=== PATIENT | female | born 1960 | race Caucasian/White ===

== ENCOUNTER 2019-05-18 16:54 | Emergency (ER) | payer OTHER, SELFPAY ==
[2019-05-18 17:03] VITALS: BP 114/75; PULSE 79; RESP 20; TEMP 36.7; O2SAT 97
--- NOTE | 2019-05-18 17:13 | ED_ITS ---
HPI - Extremity Problem General Chief complaint: Extremity Problem,Nontraumatic Stated complaint: left leg is swelling Time Seen by Provider: 05/18/19 17:07 Source: patient Mode of arrival: ambulatory Limitations: no limitations History of Present Illness HPI Narrative: 58-year-old female here for evaluation 1-2 days of left lower leg swelling and pressure when she flexes her knee. Denies any chest pain or shortn ess of breath. Denies any trauma. She did take some ibuprofen prior to arrival in by the time I evaluated her she states that her symptoms seem to be improving somewhat. She has never anything like this before. No recent prolonged immobilizations. Review of Systems Constitutional Constitutional: Denies fever(s) and Denies headache(s) ENT Ears, Nose, Mouth, and Throat: Denies headache(s) Cardiovascular Cardiovascular: Denies chest pain and Denies dyspnea Respiratory Respiratory: Denies dyspnea Gastrointestinal Gastrointestinal: Denies abdominal pain Musculoskeletal Comments: Fullness in the left knee swelling to the left lower extremity Integumentary/Breasts Skin/Breast: Denies lesions and Denies rash Neurologic Neurologic: Denies behavioral changes and Denies headache(s) Psychiatric Psychiatric: Denies behavioral changes Hematologic/Lymphatic Hematologic/Lymphatic: Denies easy bleeding and Denies easy bruising [facility] Medical History Patient denies medical problems (Acute) Social History Smoking Status: Never smoker Social History Smoking Status: Never smoker Exam Initial Vital Signs Initial Vital Signs: Vital Signs Temperature 98.1 F 05/18/19 17:03 Pulse Rate 79 05/18/19 17:03 Respiratory Rate 20 05/18/19 17:03 Blood Pressure 114/75 05/18/19 17:03 Pulse Oximetry 97 05/18/19 17:03 Const General: cooperative, well developed and well groomed Orientation: alert, awake and oriented x3 HENMT Head: normal to inspection and normocephalic Cardio Pulses: dorsalis pedis present bilaterally Skin Lesions: no lesions Rashes: no rashes Neuro Gait: normal gait Motor: muscle tone normal throughout Sensory Exam: no sensory deficits noted Extrem Other: Patient with 1+ pitting edema left lower extremity. Does have fullness her posterior left knee. Full range of motion of the left ankle and left knee. Psych Appearance: grossly normal and well kempt Course Orders Ordered: ED Orders 05/18/19 17:13 US perip venous low extrem lt Stat Vital Signs Vital signs: Vital Signs - 8 hr 05/18/19 17:03 Temperature 98.1 F Pulse Rate 79 Respiratory Rate 20 Blood Pressure 114/75 Pulse Oximetry 97 MDM - Extremity (Nontraumatic) Imaging Data Venous US: Radiologist's impression: [address] [id number] Ultrasound Report Signed Patient: Theresa Baires#: [id number] : 1960Acct:[id number] Age/Sex: 58 / FDate of Service: 05/18/19 Loc: ED Accession Number: [id number] Procedure: US perip venous low extrem lt Ordering Provider: Chad Pavon D.O. PROCEDURE: US PERIP VENOUS LOW EXTREM LT INDICATIONS: LLE EDEMA TECHNIQUE: Real-time imaging, as well as color and pulse Doppler interrogation, were performed of the lower extremity deep veins from the inguinal ligament to the popliteal fossa. COMPARISON: None. FINDINGS: The common femoral, femoral and popliteal veins are normally compressible, and free of intraluminal thrombus. Color and pulse Doppler demonstrate normal phasic intraluminal flow. There is normal augmentation response to distal compression maneuver. IMPRESSION: Negative for deep venous thrombosis. Dictated by: Jonathan Rich M.D. on 05/18/2019 at 16:56 Approved by: Jonathan Rich M.D. on 05/18/2019 at 16:58 [facility] Narrative Medical decision making narrative: Patient's ultrasound does not show any signs of DVT. Her exam is not consistent with cellulitis. She denies any trauma. Will hold on any further radiologic studies. This could potentially be internal derangement potentially of the meniscus however her physical exam and history is not necessarily consistent with this. There is no signs of heart failure. We will hold on any further workup for now. Patient is going to do conservative treatment to include keeping her leg elevated in the ibuprofen seemed to improve her symptoms somewhat. We discussed return precautions and follow-up instructions. She expressed understanding and agreement plan. Discharge Plan Departure Patient Disposition: Home Clinical Impression: Lower extremity edema Activity Restrictions/Additional Instructions: I do recommend that on Monday you contact your primary provider. If your symptoms worsen or you develop any new symptoms to include chest pain or problems breathing or redness of the skin please return to the emergency department. Keep your leg elevated as much as possible.
[2019-05-18 18:38] VITALS: BP 125/70; PULSE 68; RESP 20; O2SAT 98
== END 2019-05-18 18:38 | disposition home or self-care (01) ==
PROVIDERS: Emergency Provider Emergency Medicine
DX: R22.42 Localized swelling, mass and lump, left lower limb (principal)
CPT/HCPCS: 93971; 99282; 99284